=== PATIENT | male | born 1945 | race African-American/Black ===

== ENCOUNTER 2017-02-03 13:49 | Inpatient (IN) | payer OTHER ==
[2017-02-03 14:48] VITALS: BMI 23.2
--- NOTE | 2017-02-03 16:51 | HP ---
COWS - Scale Resting Pulse: 1= [place] 81-100 Sweatin= Chills/Flushing Restless Observation: 3= Extraneous Movement Pupil Size: 0= Normal to Room Light Bone or Joint Aches: 2= Severe Diffuse Aches Runny Nose/ Eye Tearin= Nasal Congestion GI Upset > 30mins: 2= Nausea/Diarrhea Tremor Observation: 2= Slight Tremor Visible Yawning Observation: 0= None Anxiety or Irritability: 2=Irritable/Anxious Goose Flesh Skin: 0=Smooth Skin COWS Score: [address] [facility] Chief Complaint: withdrawal sx Allergies/Adverse Reactions: Allergies Allergy/AdvReac Type Severity Reaction Status Date / Time pork derived (porcine) Allergy Severe Vomiting Verified 02/03/17 15:15 Pork/Porcine Containing Allergy Severe Vomiting Verified 02/03/17 15:15 Products No Known Drug Allergies Allergy Verified 02/03/17 15:15 History of Present Illness: 71 years old male with long history of opiate nicotine dependence has hepatitis c treated, ambulate with cane since 1994 both ankles fx, hiv since 1994 treated with genvoya, has depression and positive ppd is admitted to detox Exam Limitations: No Limitations - Ebola screening Have you traveled outside of the country in the last 21 days: No Have you had contact with anyone from an Ebola affected area: No Have you been sick,other than usual withdrawal symptoms: No Do you have a fever: No - Review of Systems Constitutional: Changes in sleep, Weight Stable EENT: reports: Dental Problems (multiple teeth missing) Respiratory: reports: No Symptoms reported Cardiac: reports: No Symptoms Reported GI: reports: Nausea, Poor Fluid Intake, Abdominal cramping : reports: No Symptoms Reported Musculoskeletal: reports: Back Pain, Joint Pain, Muscle Pain, Neck Pain Integumentary: reports: No Symptoms Reported Neuro: reports: Tremors Endocrine: reports: No Symptoms Reported Hematology: reports: No Symptoms Reported Psychiatric: reports: Judgement Intact, Orientated x3, Anxious, Depressed Other Systems: Reviewed and Negative Patient History - Patient Medical History Hx Anemia: No Hx Asthma: No Hx Chronic Obstructive Pulmonary Disease (COPD): No Hx Cancer: No Hx Cardiac Disorders: No Hx Congestive Heart Failure: No Hx Hypertension: No Hx Hypercholesterolemia: No Hx Pacemaker: No HX Cerebrovascular Accident: No Hx Seizures: No Hx Dementia: No Hx Diabetes: No Hx Gastrointestinal Disorders: No Hx Liver Disease: No Hx Genitourinary Disorders: No Hx Sexually Transmitted Disorders: No Hx Renal Disease (ESRD): No Hx Thyroid Disease: No Hx Human Immunodeficiency Virus (HIV): Yes (1994) Hx Hepatitis C: Yes (treated) Hx Depression: Yes Hx Suicide Attempt: No Hx Bipolar Disorder: No Hx Schizophrenia: No - Patient Surgical History Past Surgical History: Yes Hx Neurologic Surgery: No Hx Cataract Extraction: No Hx Cardiac Surgery: No Hx Lung Surgery: No Hx Breast Surgery: No Hx Breast Biopsy: No Hx Abdominal Surgery: No Hx Appendectomy: No Hx Cholecystectomy: No Hx Genitourinary Surgery: No Hx Orthopedic Surgery: Yes (L shoulder bilateral ankles fx s/1994) Anesthesia Reaction: No - PPD History Previous Implant?: Yes Documented Results: Positive w/o proof Implanted On Prior [facility] Admission?: No PPD to be Administered?: No - Smoking Cessation Smoking history: Current every day smoker Have you smoked in the past 12 months: Yes Aproximately how many cigarettes per day: 10 Cigars Per Day: 0 Hx Chewing Tobacco Use: No Initiated information on smoking cessation: Yes 'Breaking Loose' booklet given: 02/03/17 - Substance & Tx. History Hx Alcohol Use: No Hx Substance Use: Yes Substance Use Type: Opiates Hx Substance Use Treatment: Yes (09/05-09/11/15 [facility]) - Substances Abused Heroin Route: Inhalation Frequency: Daily Amount used: 3-5 bags Age of first use: 19 Date of Last Use: 02/02/17 Family Disease History - Family Disease History Family Disease History: Heart Disease: Mother, Sister, Other: Father (), Brother (we do not talk about medications) Admission Physical Exam S - Vital Signs Vital Signs: Vital Signs - 24 hr 02/03/17 14:47 Temperature 99.1 F Pulse Rate 92 H Respiratory 20 Rate Blood Pressure 132/68 - Physical General Appearance: Yes: Appropriately Dressed, Mild Distress, Thin, Tremorous, Irritable, Sweating, Anxious HEENTM: Yes: Hearing grossly Normal, Normal ENT Inspection, Normocephalic, Normal Voice Respiratory: Yes: Chest Non-Tender, Lungs Clear, Normal Breath Sounds, No Respiratory Distress, No Accessory Muscle Use Neck: Yes: Supple, Trachea in good position Breast: Yes: Breasts Symetrical Cardiology: Yes: Regular Rhythm, S1, S2, Tachycardia Abdominal: Yes: Non Tender, Soft, Increased Bowel Sounds Genitourinary: Yes: Within Normal Limits Back: Yes: Normal Inspection Musculoskeletal: Yes: full range of Motion, Gait Steady, Back pain, Muscle Pain (ankles) Extremities: Yes: Non-Tender, Tremors Neurological: Yes: Fully Oriented, Alert, Motor Strength 5/5, Normal Response, Depressed Affect Integumentary: Yes: Warm Lymphatic: Yes: Within Normal Limits - Diagnostic (1) Nicotine dependence Current Visit: Yes Status: Acute Qualifiers: Nicotine product type: cigarettes Substance use status: in withdrawal Qualified Code(s): F17.213 - Nicotine dependence, cigarettes, with withdrawal (2) HIV disease Current Visit: Yes Status: Chronic (3) Hepatitis C Current Visit: Yes Status: Resolved Qualifiers: Viral hepatitis chronicity: unspecified Hepatic coma status: without hepatic coma Qualified Code(s): B19.20 - Unspecified viral hepatitis C without hepatic coma (4) MDD (major depressive disorder) Current Visit: Yes Status: Suspected Qualifiers: Major depression recurrence: recurrent Active/Remission status: in remission of unspecified degree Qualified Code(s): F33.40 - Major depressive disorder, recurrent, in remission, unspecified (5) Opioid dependence with withdrawal Current Visit: Yes Status: Acute Cleared for Admission [facility] - Detox or Rehab [facility] Level of Care: Medically Managed Detox Regimen/Protocol: Methadone [facility] Breath Alcohol Content Breath Alcohol Content: 0 Urine Drug Screen - Results Drug Screen Negative: No Urine Drug Screen Results: OPI-Opiates, OXY-Oxycodone
[2017-02-03] MEDS ORDERED: MENTHOL/PHENOL 1 EACH UD MM PRN (16:54)
[2017-02-03] MEDS ORDERED: ACETAMINOPHEN 325 MG TABLET (FP) PO PRN (16:54)
[2017-02-03] MEDS ORDERED: guaiFENesin/D-METHORPHAN HB 10 ML UNIT-DOSE CUPS PO PRN (16:54)
[2017-02-03] MEDS ORDERED: LOPERAMIDE HCL 2 MG CAPSULE PO PRN (16:54)
[2017-02-03] MEDS ORDERED: METHADONE HCL 10 MG TABLET (FOR DETOX USE ONLY) PO ONE ×2 (16:54→23:00)
[2017-02-03] MEDS ORDERED: diphenhydrAMINE HCL 50 MG CAPSULE PO PRN (16:54)
[2017-02-03] MEDS ORDERED: MAGNESIUM HYDROX 2400MG/30ML ORAL SUSPENSION 30 ML CUP PO PRN (16:54)
[2017-02-03] MEDS ORDERED: IBUPROFEN 400 MG TABLET (FP) PO PRN (16:54)
[2017-02-03] MEDS ORDERED: MAGNESIUM CITRATE 300 ML BOTTLE PO PRN (16:54)
[2017-02-03] MEDS ORDERED: P-EPHED 60MG/TRIPROLIDI 2.5MG TABLET PO PRN (16:54)
[2017-02-03] MEDS ORDERED: MAG HYDROX/AL HYDROX/SIMETH 30 ML UNIT-DOSE CUP PO PRN (16:54)
[2017-02-03] MEDS: diazePAM 5 MG TABLET PO PRN ×2 (17:17→22:44)
--- NOTE | 2017-02-03 18:37 | CONSULT ---
[facility] Psychiatric Consult - Data Date of interview: 02/03/17 Admission source: [facility] Identifying data: Readmission to [facility] for this 71 y/o AA male seeking detox treatment on for heroin dependence.Patient is single,a father of seven,domiciled,retired from [employer] (used to make [employer]) and supported on [employer] benefits. Substance Abuse History: Confirmed by patient in this interview. Smoking Cessation. Smoking history: Current every day smoker. Have you smoked in the past 12 months: Yes. Aproximately how many cigarettes per day: 10. Cigars Per Day: 0. Hx Chewing Tobacco Use: No. Initiated information on smoking cessation : Yes. 'Breaking Loose' booklet given: 02/03/17. - Substance & Tx. History. Hx Alcohol Use: No. Hx Substance Use: Yes. Substance Use Type: Opiates. Hx Substance Use Treatment: Yes (09/05-09/11/15 [facility]). - Substances Abused. Heroin. Route: Inhalation. Frequency: Daily. Amount used: 3-5 bags. Age of first use: 19. Date of Last Use: 02/02/17 Medical History: HIV infection since 1994,arthritis (both knees) and a history of orthosurgery for fracture of left shoulder + both ankles.Patient ambulates with a cane. Psychiatric History: No reported history of psychiatric hospitalizations.Patient used to see a psychiatrist at [facility] to address depressive symptomatology (onset in 1994 triggered by the discovery of HIV seropositivity).Mr Rothman indicates previous trial of an antidepressant medication (name not recalled).Dropped out of OPD care for months if not years.No interest expressed for psychotropic medications other than drugs for detxification purposes.Patient denies history of suicide attempts. Physical/Sexual Abuse/Trauma History: Patient denies. Additional Comment: Urine Drug Screen Results: OPI-Opiates, OXY-Oxycodone.Noted. Mental Status Exam - Mental Status Exam Alert and Oriented to: Time, Place, Person Cognitive Function: Grossly Intact Patient Appearance: Unkempt, Disheveled Mood: Hopeful, Euthymic Affect: Appropriate, Normal Range Patient Behavior: Fatigued, Appropriate (friendly), Cooperative Speech Pattern: Clear, Appropriate Voice Loudness: Normal Thought Process: Intact, Goal Oriented Thought Disorder: Not Present Hallucinations: Denies Suicidal Ideation: Denies Homicidal Ideation: Denies Insight/Judgement: Poor Sleep: Fair Appetite: Good Gait/Station: Other (walks with a cane) Psychiatric Findings - Problem List ([place] 1, 2,3) (1) Opioid dependence with withdrawal Current Visit: Yes Status: Acute (2) Opioid dependence on agonist therapy Current Visit: Yes Status: Acute (3) Substance induced mood disorder Current Visit: Yes Status: Acute (4) Nicotine dependence Current Visit: Yes Status: Acute Qualifiers: Nicotine product type: cigarettes Substance use status: in withdrawal Qualified Code(s): F17.213 - Nicotine dependence, cigarettes, with withdrawal (5) HIV disease Current Visit: Yes Status: Chronic (6) Hepatitis C Current Visit: Yes Status: Resolved Qualifiers: Viral hepatitis chronicity: unspecified Hepatic coma status: without hepatic coma Qualified Code(s): B19.20 - Unspecified viral hepatitis C without hepatic coma - Initial Treatment Plan Initial Treatment Plan: Psychoeducation.Detoxification.Observation.
[2017-02-03] MEDS: THIAMINE HCL 100 MG TABLET (FP) PO SCH (22:44)
[2017-02-03 23:17] LABS: URINE APPEARANCE CLEAR; URINE BILIRUBIN NEGATIVE (NEGATIVE); URINE BLOOD 1+ (NEGATIVE); URINE COLOR LTYELLOW; URINE GLUCOSE (UA) NEGATIVE (NEGATIVE); URINE KETONE NEGATIVE (NEGATIVE); URINE LEUK ESTERASE NEGATIVE (NEGATIVE); URINE NITRITE NEGATIVE (NEGATIVE); URINE PROTEIN NEGATIVE (NEGATIVE); URINE UROBILINOGEN NEGATIVE mg/dL (0.2-1.0)
[2017-02-03 23:21] LABS: URINE MUCUS RARE; URINE RBC 3 /hpf (0-3); URINE WBC 1 /hpf (3-5)
[2017-02-04] MEDS: diazePAM 5 MG TABLET PO PRN ×5 (02:45→22:31)
[2017-02-04 09:43] LABS: MCH 34.5 pg (25.7-33.7); MEAN CELL VOLUME 101.4 fl (80-96); MEAN PLT VOLUME 7.4 fl (7.5-11.1); PLATELET COUNT 228 K/MM3 (134-434); WHITE BLOOD COUNT 9.2 K/mm3 (4.0-10.0)
[2017-02-04 10:00] LABS: ALBUMIN 2.8 g/dl (3.4-5.0); ALK PHOS 67 U/L (45-117); ANION GAP 7 (8-16); BILIRUBIN,TOTAL 0.3 mg/dL (0.2-1.0); CALCIUM 8.3 mg/dL (8.5-10.1); CO2 24 mmol/L (21-32); CREATININE 0.7 mg/dL (0.7-1.3); GLUCOSE,RANDOM 94 mg/dL (74-106); SGOT/AST 17 U/L (15-37); SGPT/ALT 33 U/L (12-78); TOT PROT 6.3 g/dl (6.4-8.2)
[2017-02-04] MEDS ORDERED: METHADONE HCL 10 MG TABLET (FOR DETOX USE ONLY) PO ONE (10:00)
[2017-02-04] MEDS: NICOTINE 14 MG/24 HOURS TOPICAL PATCH TD SCH (10:47)
[2017-02-04] MEDS: PRENATAL VITAMINS W/ FOLIC ACID TABLET (FP) PO SCH (10:47)
[2017-02-04] MEDS: NICOTINE POLACRILEX 2 MG GUM BC PRN ×2 (10:51→15:31)
--- NOTE | 2017-02-04 11:23 | PN ---
[facility] COWS - Scale Resting Pulse: 1= ID 81-100 Sweatin= Chills/Flushing Restless Observation: 3= Extraneous Movement Pupil Size: 2= Moderately Dilated Bone or Joint Aches: 4=Acute Joint/Muscle Pain Runny Nose/ Eye Tearin= Nasal Congestion GI Upset > 30mins: 1= Stomach Cramp Tremor Observation of Outstretched Hands: 2= Slight Tremor Visible Yawning Observation: 2= >3x During Session Anxiety or Irritability: 2=Irritable/Anxious Goose Flesh Skin: 0=Smooth Skin COWS Score: 19 BHS Progress Note (SOAP) Subjective: ANXIETY,SWEATS,BODYACHES, TREMORS. Objective: 02/04/17 11:22 Vital Signs Temperature 98.2 F 02/04/17 09:08 Pulse Rate 83 02/04/17 09:08 Respiratory Rate 18 02/04/17 09:08 Blood Pressure 119/68 02/04/17 09:08 O2 Sat by Pulse Oximetry (%) Laboratory Last Values WBC 9.2 K/mm3 (4.0-10.0) 02/04/17 07:00 RBC 3.34 M/mm3 (4.00-5.60) L 02/04/17 07:00 Hgb 11.5 GM/dL (11.7-16.9) L D 02/04/17 07:00 Hct 33.9 % (35.4-49) L D 02/04/17 07:00 MCV 101.4 fl (80-96) H 02/04/17 07:00 MCH 34.5 pg (25.7-33.7) H D 02/04/17 07:00 MCHC 34.0 g/dl (32.0-35.9) 02/04/17 07:00 RDW 13.0 % (11.9-15.9) 02/04/17 07:00 Plt Count 228 K/MM3 (134-434) D 02/04/17 07:00 MPV 7.4 fl (7.5-11.1) L 02/04/17 07:00 Sodium 141 mmol/L (136-145) 02/04/17 07:00 Potassium 3.9 mmol/L (3.5-5.1) 02/04/17 07:00 Chloride 110 mmol/L (98-107) H 02/04/17 07:00 Carbon Dioxide 24 mmol/L (21-32) 02/04/17 07:00 Anion Gap 7 (8-16) L 02/04/17 07:00 BUN 17 mg/dL (7-18) 02/04/17 07:00 Creatinine 0.7 mg/dL (0.7-1.3) D 02/04/17 07:00 Creat Clearance w eGFR > 60 (>60) 02/04/17 07:00 Random Glucose 94 mg/dL (74-106) 02/04/17 07:00 Calcium 8.3 mg/dL (8.5-10.1) L 02/04/17 07:00 Total Bilirubin 0.3 mg/dL (0.2-1.0) D 02/04/17 07:00 AST 17 U/L (15-37) D 02/04/17 07:00 ALT 33 U/L (12-78) D 02/04/17 07:00 Alkaline Phosphatase 67 U/L (45-117) 02/04/17 07:00 Total Protein 6.3 g/dl (6.4-8.2) L 02/04/17 07:00 Albumin 2.8 g/dl (3.4-5.0) L D 02/04/17 07:00 Urine Color Ltyellow 02/03/17 23:00 Urine Appearance Clear 02/03/17 23:00 Urine pH 6.0 (5.0-8.0) 02/03/17 23:00 Urine Protein Negative (NEGATIVE) 02/03/17 23:00 Urine Glucose (UA) Negative (NEGATIVE) 02/03/17 23:00 Urine Ketones Negative (NEGATIVE) 02/03/17 23:00 Urine Blood 1+ (NEGATIVE) H 02/03/17 23:00 Urine Nitrite Negative (NEGATIVE) 02/03/17 23:00 Urine Bilirubin Negative (NEGATIVE) 02/03/17 23:00 Urine Urobilinogen Negative mg/dL (0.2-1.0) 02/03/17 23:00 Ur Leukocyte Esterase Negative (NEGATIVE) 02/03/17 23:00 Urine RBC 3 /hpf (0-3) 02/03/17 23:00 Urine WBC 1 /hpf (3-5) 02/03/17 23:00 Ur Epithelial Cells Rare /hpf (FEW) 02/03/17 23:00 Urine Mucus Rare 02/03/17 23:00 Assessment: 02/04/17 11:22 WITHDRAWAL SX Plan: CONTINUE DETOX
--- NOTE | 2017-02-04 11:33 | EKG ---
Test Reason : Blood Pressure : / mmHG Vent. Rate : 080 BPM Atrial Rate : 080 BPM P-R Int : 166 ms QRS Dur : 086 ms QT Int : 350 ms P-R-T Axes : 073 003 044 degrees QTc Int : 403 ms NORMAL SINUS RHYTHM NORMAL ECG NO PREVIOUS ECGS AVAILABLE Confirmed by EVELIN AQUINO MD ([id number]) on 02/04/2017 11:32:56 AM Referred By: Confirmed By:EVELIN AQUINO MD
[2017-02-04] MEDS: THIAMINE HCL 100 MG TABLET (FP) PO SCH (22:30)
[2017-02-05] MEDS: diazePAM 5 MG TABLET PO PRN ×3 (05:21→22:24)
[2017-02-05] MEDS ORDERED: METHADONE HCL 5 MG TABLET (FOR DETOX USE ONLY) PO ONE (10:00)
[2017-02-05] MEDS: PRENATAL VITAMINS W/ FOLIC ACID TABLET (FP) PO SCH (10:14)
[2017-02-05] MEDS: NICOTINE 14 MG/24 HOURS TOPICAL PATCH TD SCH (10:14)
--- NOTE | 2017-02-05 11:44 | PN ---
S COWS - Scale Resting Pulse: 1= [place] 81-100 Sweatin= Chills/Flushing Restless Observation: 3= Extraneous Movement Pupil Size: 2= Moderately Dilated Bone or Joint Aches: 4=Acute Joint/Muscle Pain Runny Nose/ Eye Tearin= Nasal Congestion GI Upset > 30mins: 1= Stomach Cramp Tremor Observation of Outstretched Hands: 1= Tremor [place], Not Seen Yawning Observation: 2= >3x During Session Anxiety or Irritability: 2=Irritable/Anxious Goose Flesh Skin: 0=Smooth Skin COWS Score: 18 BHS Progress Note (SOAP) Subjective: ANXIETY,TREMORS,SWEATS, INTERMITTENT SLEEP. Objective: 02/05/17 11:41 Vital Signs Temperature 96.6 F L 02/05/17 09:59 Pulse Rate 96 H 02/05/17 09:59 Respiratory Rate 20 02/05/17 09:59 Blood Pressure 130/70 02/05/17 09:59 O2 Sat by Pulse Oximetry (%) Laboratory Last Values WBC 9.2 K/mm3 (4.0-10.0) 02/04/17 07:00 RBC 3.34 M/mm3 (4.00-5.60) L 02/04/17 07:00 Hgb 11.5 GM/dL (11.7-16.9) L D 02/04/17 07:00 Hct 33.9 % (35.4-49) L D 02/04/17 07:00 MCV 101.4 fl (80-96) H 02/04/17 07:00 MCH 34.5 pg (25.7-33.7) H D 02/04/17 07:00 MCHC 34.0 g/dl (32.0-35.9) 02/04/17 07:00 RDW 13.0 % (11.9-15.9) 02/04/17 07:00 Plt Count 228 K/MM3 (134-434) D 02/04/17 07:00 MPV 7.4 fl (7.5-11.1) L 02/04/17 07:00 Sodium 141 mmol/L (136-145) 02/04/17 07:00 Potassium 3.9 mmol/L (3.5-5.1) 02/04/17 07:00 Chloride 110 mmol/L (98-107) H 02/04/17 07:00 Carbon Dioxide 24 mmol/L (21-32) 02/04/17 07:00 Anion Gap 7 (8-16) L 02/04/17 07:00 BUN 17 mg/dL (7-18) 02/04/17 07:00 Creatinine 0.7 mg/dL (0.7-1.3) D 02/04/17 07:00 Creat Clearance w eGFR > 60 (>60) 02/04/17 07:00 Random Glucose 94 mg/dL (74-106) 02/04/17 07:00 Calcium 8.3 mg/dL (8.5-10.1) L 02/04/17 07:00 Total Bilirubin 0.3 mg/dL (0.2-1.0) D 02/04/17 07:00 AST 17 U/L (15-37) D 02/04/17 07:00 ALT 33 U/L (12-78) D 02/04/17 07:00 Alkaline Phosphatase 67 U/L (45-117) 02/04/17 07:00 Total Protein 6.3 g/dl (6.4-8.2) L 02/04/17 07:00 Albumin 2.8 g/dl (3.4-5.0) L D 02/04/17 07:00 Urine Color Ltyellow 02/03/17 23:00 Urine Appearance Clear 02/03/17 23:00 Urine pH 6.0 (5.0-8.0) 02/03/17 23:00 Ur Specific [place] 1.015 (1.005-1.025) 02/03/17 23:00 Urine Protein Negative (NEGATIVE) 02/03/17 23:00 Urine Glucose (UA) Negative (NEGATIVE) 02/03/17 23:00 Urine Ketones Negative (NEGATIVE) 02/03/17 23:00 Urine Blood 1+ (NEGATIVE) H 02/03/17 23:00 Urine Nitrite Negative (NEGATIVE) 02/03/17 23:00 Urine Bilirubin Negative (NEGATIVE) 02/03/17 23:00 Urine Urobilinogen Negative mg/dL (0.2-1.0) 02/03/17 23:00 Ur Leukocyte Esterase Negative (NEGATIVE) 02/03/17 23:00 Urine RBC 3 /hpf (0-3) 02/03/17 23:00 Urine WBC 1 /hpf (3-5) 02/03/17 23:00 Ur Epithelial Cells Rare /hpf (FEW) 02/03/17 23:00 Urine Mucus Rare 02/03/17 23:00 RPR Titer Nonreactive (NONREACTIVE) 02/04/17 07:00 Assessment: 02/05/17 11:42 WITHDRAWAL SX Plan: CONTINUE DETOX
[2017-02-05] MEDS: THIAMINE HCL 100 MG TABLET (FP) PO SCH (22:24)
[2017-02-06] MEDS: diazePAM 5 MG TABLET PO PRN (02:27)
[2017-02-06 06:42] VITALS: BP 124/67; PULSE 71; TEMP 98.2
[2017-02-06] MEDS ORDERED: METHADONE HCL 5 MG TABLET (FOR DETOX USE ONLY) PO ONE (10:00)
--- NOTE | 2017-02-06 21:27 | DS ---
[facility] Detox Discharge Summary Admission Date: 02/03/17 Discharge Date: 02/06/17 - History Present History: Opioid Dependence Additional Comments: PATIENT DOES NOT WISH TO STAY TO COMPLETE DETOX REGIMEN. PATIENT ADVISED TO IMMEDIATELY GO TO NEAREST ER SHOULD ANY INTOLERABLE DETOX / WITHDRAWAL SYMPTOMS DEVELOP AT ANY TIME. PATIENT LEFT UNIT IN STABLE MEDICAL CONDITION. Pertinent Past History: HIV, Hep C, - Physical Exam Results Vital Signs: Vital Signs Temperature 98.2 F 02/06/17 06:41 Pulse Rate 71 02/06/17 06:41 Respiratory Rate 16 02/06/17 06:41 Blood Pressure 124/67 02/06/17 06:41 O2 Sat by Pulse Oximetry (%) Pertinent Admission Physical Exam Findings: WITHDRAWAL SYMPTOMS. Laboratory Tests 02/03/17 02/04/17 02/04/17 23:00 07:00 07:00 WBC 9.2 RBC 3.34 L Hgb 11.5 L D Hct 33.9 L D MCV 101.4 H MCH 34.5 H D MCHC 34.0 RDW 13.0 Plt Count 228 D MPV 7.4 L Sodium 141 Potassium 3.9 Chloride 110 H Carbon Dioxide 24 Anion Gap 7 L BUN 17 Creatinine 0.7 D Creat Clearance w eGFR > 60 Random Glucose 94 Calcium 8.3 L Total Bilirubin 0.3 D AST 17 D ALT 33 D Alkaline Phosphatase 67 Total Protein 6.3 L Albumin 2.8 L D Urine Color Ltyellow Urine Appearance Clear Urine pH 6.0 Ur Specific [place] 1.015 Urine Protein Negative Urine Glucose (UA) Negative Urine Ketones Negative Urine Blood 1+ H Urine Nitrite Negative Urine Bilirubin Negative Urine Urobilinogen Negative Ur Leukocyte Esterase Negative Urine RBC 3 Urine WBC 1 Ur Epithelial Cells Rare Urine Mucus Rare RPR Titer 02/04/17 07:00 WBC RBC Hgb Hct MCV MCH MCHC RDW Plt Count MPV Sodium Potassium Chloride Carbon Dioxide Anion Gap BUN Creatinine Creat Clearance w eGFR Random Glucose Calcium Total Bilirubin AST ALT Alkaline Phosphatase Total Protein Albumin Urine Color Urine Appearance Urine pH Ur Specific [place] Urine Protein Urine Glucose (UA) Urine Ketones Urine Blood Urine Nitrite Urine Bilirubin Urine Urobilinogen Ur Leukocyte Esterase Urine RBC Urine WBC Ur Epithelial Cells Urine Mucus RPR Titer Nonreactive LABS NOTED. - Treatment Hospital Course: Detoxed Safely - Medication Discharge Medications: Ambulatory Orders Ascorbic Acid [Vitamin C] 500 mg PO DAILY #30 capsule.er 09/11/15 Elviteg/Rimma/Emtric/Tenofo Ala [Genvoya Tablet] 1 each PO DAILY 02/03/17 Multivitamins [Tab-A-Vit -] 1 tab PO DAILY 02/03/17 - Diagnosis (1) Nicotine dependence Status: Chronic Qualifiers: Nicotine product type: cigarettes Substance use status: in withdrawal Qualified Code(s): F17.213 - Nicotine dependence, cigarettes, with withdrawal (2) Opioid dependence on agonist therapy Status: Acute (3) Opioid dependence with withdrawal Status: Acute (4) Substance induced mood disorder Status: Acute (5) HIV disease Status: Chronic (6) MDD (major depressive disorder) Status: Suspected Qualifiers: Major depression recurrence: recurrent Active/Remission status: in remission of unspecified degree Qualified Code(s): F33.40 - Major depressive disorder, recurrent, in remission, unspecified - AMA Did Patient Leave Against Medical Advice: Yes (PATIENT DID NOT WISH TO STAY TO COMPLETE DETOX REGIMEN.)
[2017-02-07] MEDS ORDERED: METHADONE HCL 10 MG TABLET (FOR DETOX USE ONLY) PO ONE (10:00)
[2017-02-08] MEDS ORDERED: METHADONE HCL 5 MG TABLET (FOR DETOX USE ONLY) PO ONE (06:00)
== END 2017-02-06 09:42 | disposition left against medical advice (07) | DRG 894 ==
LOC: YASAS 13:49 → Y3N 16:01
PROVIDERS: ADMIT Internal Medicine Addiction Medicine; ATTEND Internal Medicine Addiction Medicine
PROC: HZ2ZZZZ Detoxification Services for Substance Abuse Treatment (ICD-10-PCS; principal; 2017-02-03)
DX: F11.23 Opioid dependence with withdrawal (principal); F33.40 Major depressive disorder, recurrent, in remission, unspecified; F17.213 Nicotine dependence, cigarettes, with withdrawal; F19.24 Other psychoactive substance dependence with psychoactive substance-induced mood disorder; B19.20 Unspecified viral hepatitis C without hepatic coma; Z21 Asymptomatic human immunodeficiency virus [HIV] infection status; R00.0 Tachycardia, unspecified; R26.2 Difficulty in walking, not elsewhere classified; Z99.89 Dependence on other enabling machines and devices
CPT/HCPCS: 36415; 71020-TC; 80053; 81003; 81015; 85027; 86593; 93005; 93010